=== PATIENT | male | born 1930 | race Caucasian/White ===

== ENCOUNTER 2017-07-04 09:54 | Emergency (ER) | payer MEDICARE, BC ==
[~2017-07-04] VITALS: Ht 167.6 cm; Wt 75.0 kg
[~2017-07-04 09:54] MED LIST: ALBU18HF2 IH; AMIO200T57 PO; CARV-50 PO; FURO40TA4 PO; ISOS30TA9 PO; MULT-1150 PO; PRAZ2CAP2 PO; SIMV20TA5 PO; SYN0.088T PO
[2017-07-04] MEDS ORDERED: normal saline 1000ML IV soln IVB ONE (11:00)
[2017-07-04 11:49] LABS: BASOPHILS % (AUTO) 0.3 % (0-1); EOSINOPHILS # (AUTO) 0.2 X10'3 (0-0.9); EOSINOPHILS % (AUTO) 2.2 % (0-6); HEMATOCRIT 35.3 % (42.0-52.0); HEMOGLOBIN 12.2 g/dl (14.0-17.9); LYMPHOCYTES % (AUTO) 21.4 % (21-51); MEAN CORPUSCULAR HEMOGLOBIN 32.4 PG (27.0-31.0); MEAN CORPUSCULAR HGB CONC 34.6 % (33.0-36.5); MEAN CORPUSCULAR VOLUME 93.5 FL (78-98); MEAN PLATELET VOLUME 8.1 FL (7.4-10.4); MONOCYTES % (AUTO) 10.5 % (2-12); NEUTROPHILS % (AUTO) 65.6 % (42-75); PLATELET COUNT 196 X10'3 (140-440); RED BLOOD COUNT 3.77 X10'6 (4.70-6.10); RED CELL DISTRIBUTION WIDTH 13.8 % (11.5-14.5); WHITE BLOOD COUNT 9.2 X10'3 (4.5-11.0)
[2017-07-04 11:56] LABS: CLARITY,URINE CLEAR (Clear); COLOR,URINE YELLOW (Yellow); GLUCOSE, URINE NEGATIVE (Neg); KETONES,URINE NEGATIVE (Neg); LEUKOCYTE ESTERASE ,URINE TRACE (Neg); NITRITES, URINE NEGATIVE (Neg); OCCULT BLOOD,URINE NEGATIVE (Neg); PH,URINE 6.5 (4.8-8.0); PROTEIN,URINE NEGATIVE (Neg); UROBILINOGEN,URINE 0.2 E.U/dL (0.2-1.0)
[2017-07-04 12:01] LABS: PROTHROMBIN TIME 10.8 SECONDS (9.0-12.0)
[2017-07-04 12:01] LABS: UA COLLECTION TYPE URINAL
[2017-07-04 12:02] LABS: RBC,URINE NONE SEEN /HPF (0-2); WBC,URINE 0-4 /HPF (0-4)
[2017-07-04 12:03] LABS: BACTERIA,URINE NONE SEEN /HPF (Neg); MUCUS STRANDS NONE SEEN /LPF (Neg); SQUAMOUS EPITHELIAL CELL,UR NONE SEEN /LPF (FEW)
[2017-07-04 12:13] LABS: ALANINE AMINOTRANSFERASE 35 U/L (12-78); ALBUMIN 3.4 G/DL (3.4-5.0); ALBUMIN/GLOBULIN RATIO 0.8 (1.1-1.5); ALKALINE PHOSPHATASE 67 IU/L (46-116); ANION GAP 11 (8-16); ASPARTATE AMINO TRANSFERASE 31 U/L (10-37); BILIRUBIN,TOTAL 0.5 MG/DL (0.1-1.0); BLOOD UREA NITROGEN 34 MG/DL (7-18); BUN/CREATININE RATIO 14.7 (5.4-32.0); CALCIUM 8.3 MG/DL (8.5-10.1); CHLORIDE 106 MMOL/L (99-107); CREATININE 2.32 MG/DL (0.60-1.10); MAGNESIUM 1.9 MG/DL (1.5-2.4); POTASSIUM 3.6 MMOL/L (3.5-5.1); SODIUM 145 MMOL/L (135-145); TOTAL CARBON DIOXIDE 28.5 MMOL/L (24-32); TOTAL PROTEIN 7.7 G/DL (6.4-8.2); eGFR 27 ML/MIN
[2017-07-04 12:17] LABS: GLUCOSE 96 MG/DL (70-104)
[2017-07-04 14:09] VITALS: BP 154/95
== END 2017-07-04 13:50 | disposition home or self-care (01) ==
LOC: ER 09:55
DX: R42 Dizziness and giddiness (principal); R55 Syncope and collapse; I25.10 Atherosclerotic heart disease of native coronary artery without angina pectoris; I13.0 Hypertensive heart and chronic kidney disease with heart failure and stage 1 through stage 4 chronic kidney disease, or unspecified chronic kidney disease; I50.9 Heart failure, unspecified; N18.9 Chronic kidney disease, unspecified; J45.909 Unspecified asthma, uncomplicated; Z86.73 Personal history of transient ischemic attack (TIA), and cerebral infarction without residual deficits; Z95.0 Presence of cardiac pacemaker; Z95.1 Presence of aortocoronary bypass graft; Z88.5 Allergy status to narcotic agent; Z79.899 Other long term (current) drug therapy
CPT/HCPCS: 36415; 70450; 71045; 80053; 81001; 82948; 83735; 83880; 84484; 85025; 85610; 87088; 93005; 99285

== ENCOUNTER 2020-11-06 08:16 | Day surgery (SDC) | payer MEDICARE, BC ==
[~2020-11-06] VITALS: Ht 165.1 cm; Wt 71.8 kg
[~2020-11-06 08:16] MED LIST changes: -AMIO200T57 PO; +AMLO2.5T2 PO; +DRON400T6 PO; -ISOS30TA9 PO; -MULT-1150 PO; -PRAZ2CAP2 PO; +ROSU20TA31 PO; -SIMV20TA5 PO
[2020-11-06 08:34] VITALS: BP 145/73
[2020-11-06] MEDS ORDERED: CLOP75TA15 PO (08:38)
[2020-11-06] MEDS ORDERED: VIT1CAPS46 PO (08:39)
[2020-11-06] MEDS ORDERED: AZEL137S4 BOTHNARES (08:39)
[2020-11-06] MEDS ORDERED: [UNRECOGNIZED DRUG - OTHER] PO (08:40)
[2020-11-06] MEDS ORDERED: fentaNYL/PF 50MCG/1 ML 2ML syringe ONE (08:43)
[2020-11-06] MEDS ORDERED: MIDAZolam 1 MG/ML 5ML VIAL ONE (08:44)
[2020-11-06] MEDS ORDERED: LIDOcaine Viscous 15ml cup ONE (08:44)
[2020-11-06 09:47] VITALS: BP 145/85
[2020-11-06 09:57] VITALS: BP 149/71
[2020-11-06 10:07] VITALS: BP 149/73
[2020-11-06 10:17] VITALS: BP 154/86
== END 2020-11-06 10:20 | disposition home or self-care (01) ==
LOC: GI LAB 08:16
PROVIDERS: ATTEND Internal Medicine Gastroenterology
DX: K25.9 Gastric ulcer, unspecified as acute or chronic, without hemorrhage or perforation (principal); K22.2 Esophageal obstruction; K44.9 Diaphragmatic hernia without obstruction or gangrene; K29.70 Gastritis, unspecified, without bleeding; I11.0 Hypertensive heart disease with heart failure; I50.9 Heart failure, unspecified; Z95.1 Presence of aortocoronary bypass graft; Z95.0 Presence of cardiac pacemaker; Z79.01 Long term (current) use of anticoagulants; Z88.8 Allergy status to other drugs, medicaments and biological substances
CPT/HCPCS: 43239; J2250; J3010; J7040; 88305; 88342; 99152; A4620